=== PATIENT | female | born 1950 | race Two or more races ===

== ENCOUNTER 2024-04-21 19:45 | Emergency (ER) | payer MEDICAID ==
[2024-04-23] MEDS ORDERED: ALEN70TA74 PO (14:02)
[2024-04-23] MEDS ORDERED: SACU1TAB7 PO (14:02)
== END 2024-04-21 20:34 | disposition left against medical advice (07) ==
LOC: ER 19:45
DX: J10.1 Influenza due to other identified influenza virus with other respiratory manifestations (principal); Z53.21 Procedure and treatment not carried out due to patient leaving prior to being seen by health care provider

== ENCOUNTER 2024-04-23 08:46 | Inpatient (IN) | payer MEDICAID ==
[~2024-04-23] VITALS: Ht 157.5 cm; Wt 78.9 kg
[~2024-04-23 08:46] MED LIST: ALEN70TA74 PO; AZIT-43 PO; BENZ200C64 PO; CALCTAB49 PO; CHOL400T17 PO; INSU1INJ19 SC; SACU1TAB7 PO
[2024-04-23] MEDS: SODIUM CHLORIDE 0.9% 1,000 ML IV ONE (09:27)
[2024-04-23] MEDS: FAMOTIDINE (10MG/ML) 2ML VL IV ONE (09:44)
[2024-04-23 09:45] VITALS: PULSE 72; RESP 22; O2SAT 94
[2024-04-23] MEDS: ACETAMINOPHEN 325 MG TAB PO ONE (09:45)
[2024-04-23] MEDS: ONDANSETRON HCL 4 MG/2 ML VIAL IV ONE (09:45)
[2024-04-23 09:48] LABS: Basophils # (auto) 0 10 ^3/uL (0-0.2); Basophils % (auto) 0.2 % (0.0-2.0); Eosinophils # (auto) 0 10 ^3/uL (0-0.8); Hematocrit 34.7 % (36.0-46.0); Hemoglobin 11.3 g/dL (12.2-16.2); Lymphocytes # (auto) 1.2 10 ^3/uL (0.4-5.4); Lymphocytes % (auto) 10.5 % (10.0-50.0); Mean Corpuscular Hemoglobin 28.8 pg (28.0-32.0); Mean Corpuscular Hgb Conc. 32.5 g/dL (32.0-36.0); Mean Corpuscular Volume 88.7 fL (80.0-100.0); Monocytes # (auto) 0.6 10 ^3/uL (0-1.3); Monocytes % (auto) 5.7 % (0.0-12.0); Neutrophils # (auto) 9.4 10 ^3/uL (1.6-8.6); Neutrophils % (auto) 83.6 % (37.0-80.0); Platelet Count (auto) 232 10^3/uL (140-450); Red Blood Cells 3.91 10^6/uL (4.0-5.20); Red Cell Distribution Width 13.6 % (11.8-14.3); White Blood Cell 11.3 10^3/uL (4.4-10.8)
--- NOTE | 2024-04-23 09:58 | DVH ---
EXAM: XY CHEST PORTABLE Indication: sob Technique: Single frontal view of the chest was obtained Comparison: None FINDINGS: Lines and Tubes: None Lungs: No focal consolidation. Pleura: No effusion. No pneumothorax. Cardiomediastinal contours: Unremarkable Bones: No acute osseous abnormality. IMPRESSION: No acute cardiopulmonary disease.
[2024-04-23 10:32] LABS: Rapid Influenza B Negative (Negative)
[2024-04-23 10:34] LABS: Rapid Influenza A Positive (Negative)
[2024-04-23 10:35] LABS: COVID19 ANTIGEN SOFIA FIA NEGATIVE (NEGATIVE)
[2024-04-23 10:57] LABS: Urine Bacteria None Seen /hpf (None Seen)
[2024-04-23 11:01] LABS: Alanine Aminotransferase 24 U/L (7-40); Albumin 4.1 g/dL (3.2-4.8); Alkaline Phosphatase 58 U/L (46-116); Anion Gap 11 (5-15); BUN/Creatinine Ratio 23.2 (10.0-20.0); Bilirubin, Total 0.4 mg/dL (0.2-1.0); Calcium 9.6 mg/dL (8.7-10.4); Carbon Dioxide 22 mmol/L (20-31); Chloride 106 mmol/L (98-107); Sodium 139 mmol/L (136-145); Total Protein 7.4 g/dL (5.7-8.2)
[2024-04-23 11:02] LABS: Aspartate Aminotransferase 47 U/L (13-40); Blood Urea Nitrogen 35 mg/dL (9-23); Potassium 3.2 mmol/L (3.5-5.1)
--- NOTE | 2024-04-23 11:34 | ED.PDOC ---
History of Present Illness HPI Comments 73F with HTN, HLD, DM2, CHF, presents with 2 days of cough congestion runny nose sore throat and hypoxia. Patient also reports having bilateral achy chest pain. She was satting only 84% on room air. Chief Complaint: Flu like Time Seen by MD: 09:00 Primary Care Provider: KAJAL Allergies: Coded Allergies: NO KNOWN ALLERGIES (Unverified , 04/23/24) Home Meds Active Scripts Atorvastatin Calcium (ATORVASTATIN CALCIUM) 40 Mg Tab, 20 MG PO HS for 30 Days, #30 TAB 5 [facility]/24 Potassium Chloride (POTASSIUM CHLORIDE CR) 10 Meq Tb, 1 TAB PO DAILY for 14 Days, #14 TAB 5 [facility] 04/26/24 Furosemide (Lasix) 20 Mg Tb, 1 TAB PO DAILY for 30 Days, #30 TAB 1 [facility] 04/26/24 Oseltamivir Phosphate (Tamiflu) 75 Mg Cap, 30 MG PO BID for 2 Days, #4 CAP [facility] 04/26/24 Prednisone (Prednisone) 20 Mg Tab, 40 MG PO DAILY for 3 Days, #3 TAB [facility] 04/26/24 Levofloxacin Hemihydrate (LEVOFLOXACIN) 750 Mg Tab, 1 TAB PO DAILY for 3 Days, #3 TAB [facility] 04/26/24 Insulin Glargine (Basaglar Kwikpen) 100 Unit/Ml Inj, 22 UNIT SC DAILY for 68 Days, #15 INJ [facility] 04/26/24 Reported Medications Benzonatate (Benzonatate) 200 Mg Cap, 1 CAP PO TID PRN for 10 Days, #30 04/25/24 Calcium Carbonate (Calcium 600) 600 Mg Tab, 1 TAB PO BID for 90 Days, #180 04/25/24 Cholecalciferol (Delta D3) 400 Unit Tab, 1 TAB PO DAILY for 90 Days, #90 04/25/24 Clopidogrel Bisulfate (CLOPIDOGREL) 75 Mg Tab, 1 TAB PO DAILY 04/23/24 Levetiracetam (Levetiracetam) 500 Mg Tab, 1 TAB PO BID 04/23/24 Metformin Hydrochloride (Metformin Hcl) 850 Mg Tab, 1 TAB PO DAILY 04/23/24 Sacubitril-Valsartan (Entresto 49-51 mg) 1 Tab Tab, 1 TAB PO BID for 90 Days, #180 04/23/24 Carvedilol (Carvedilol) 3.125 Mg Tab, 1 TAB PO BID 04/23/24 Alendronate Sodium (Alendronate Sodium) 70 Mg Tab, 1 TAB PO QWEEKLY for 84 Days, #12 04/23/24 Empagliflozin (Jardiance) 10 Mg Tab, 1 TAB PO DAILY 04/23/24 Mode of Arrival: Wheelchair All Other Systems: Reviewed and Negative Physical Exam General Appearance: Moderate Distress HEENT: Pharynx Normal Neck: Normal Inspection Respiratory: Other (Wheezing bilaterally, hypoxic on room air tachypneic) Cardiovascular: Tachycardia Breast Exam: Deferred Gastrointestinal: Non Tender Genitalia: Deferred Pelvic: Deferred Rectal: Deferred Extremities: Normal range of motion Neurologic: No Motor Deficits Cerebellar Function: NOT DONE Reflexes: NOT DONE Skin: Dry Lymphatic: NOT DONE Was a procedure done? Was a procedure done?: No Differential Dx Considerations may include: Pneumonia, influenza, viral syndrome, heart failure X-Ray, Labs, Meds, VS Vital Signs Date Time Temp Pulse Resp B/P (MAP) Pulse Ox O2 Delivery O2 Flow Rate FiO2 04/23/24 13:00 70 28 121/32 (61) 95 04/23/24 12:47 71 35 118/38 (64) 95 04/23/24 12:46 72 04/23/24 09:51 97.9 72 22 137/72 (93) 94 97.9 04/23/24 09:45 72 22 94 Nasal Cannula* 2 28 04/23/24 09:16 19 94 Nasal Cannula* 05 1704/23/24 09:05 102.0 79 19 104/54 (71) 84 Lab Test 04/23/24 12:00 04/23/24 10:20 04/23/24 09:45 04/23/24 09:20 Range/Units White Blood Count 11.9 H 11.3 H 4.4-10.8 10^3/uL Red Blood Count 3.80 L 3.91 L 4.0-5.20 10^6/uL Hemoglobin 11.1 L 11.3 L 12.2-16.2 g/dL Hematocrit 33.8 L 34.7 L 36.0-46.0 % Mean Corpuscular Volume 88.9 88.7 80.0-100.0 fL Mean Corpuscular Hemoglobin 29.2 28.8 28.0-32.0 pg Mean Corpuscular Hemoglobin Concent 32.8 32.5 32.0-36.0 g/dL Red Cell Distribution Width 13.7 13.6 11.8-14.3 % Platelet Count 211 232 140-450 10^3/uL Mean Platelet Volume 7.3 7.3 6.9-10.8 fL Neutrophils (%) (Auto) 77.3 83.6 H 37.0-80.0 % Lymphocytes (%) (Auto) 15.3 10.5 10.0-50.0 % Monocytes (%) (Auto) 7.2 5.7 0.0-12.0 % Eosinophils (%) (Auto) 0.0 0.0 0.0-7.0 % Basophils (%) (Auto) 0.2 0.2 0.0-2.0 % Neutrophils # (Auto) 9.2 H 9.4 H 1.6-8.6 10 ^3/uL Lymphocytes # (Auto) 1.8 1.2 0.4-5.4 10 ^3/uL Monocytes # (Auto) 0.9 0.6 0-1.3 10 ^3/uL Eosinophils # (Auto) 0 0 0-0.8 10 ^3/uL Basophils # (Auto) 0 0 0-0.2 10 ^3/uL Nucleated Red Blood Cells 0.0 0.0 % Prothrombin Time 12.3 H 9.3-11.8 sec Prothrombin Time INR 1.18 H 0.9-1.15 Activated Partial Thromboplast Time 33.1 24.5-34.5 SEC Hemoglobin A1c 7.3 H <5.7 % A1C Troponin I High Sensitivity 3391 *H 2666 *H 2214 *H </=34 ng/L Urine Color Colorless Yellow Urine Clarity Turbid H Clear Urine pH 5.5 5.0-9.0 Urine Specific [place] 1.026 1.001-1.035 Urine Protein 1+ H Negative Urine Ketones Negative Negative Urine Blood 2+ H Negative /uL Urine Nitrite Negative Negative Urine Bilirubin Negative Negative Urine Urobilinogen Normal Negative mg/dL Urine Leukocyte Esterase Trace Negative /uL Urine RBC 5 0 - 4 /hpf Urine Microscopic WBC 22 H 0-5 /HPF Urine Squamous Epithelial Cells Few <5 /hpf Urine Bacteria None seen None Seen /hpf Urine Yeast (Budding) Occasional None Seen /hpf Urine Glucose 4+ H Normal mg/dL Sodium Level 139 136-145 mmol/L Potassium Level 3.2 L 3.5-5.1 mmol/L Chloride Level 106 98-107 mmol/L Carbon Dioxide Level 22 20-31 mmol/L Anion Gap 11 5-15 Blood Urea Nitrogen 35 H 9-23 mg/dL Creatinine 1.51 H 0.550-1.02 mg/dL Glomerular Filtration Rate Calc 36 >90 mL/min BUN/Creatinine Ratio 23.2 H 10.0-20.0 Serum Glucose 176 H 74-106 mg/dL Lactic Acid Level 1.0 0.4-2.0 mmol/L Calcium Level 9.6 8.7-10.4 mg/dL Total Bilirubin 0.4 0.2-1.0 mg/dL Aspartate Amino Transferase (AST) 47 H 13-40 U/L Alanine Aminotransferase (ALT) 24 7-40 U/L Alkaline Phosphatase 58 46-116 U/L B-Type Natriuretic Peptide 1858.46 0-100 pg/mL Total Protein 7.4 5.7-8.2 g/dL Albumin 4.1 3.2-4.8 g/dL Test 04/23/24 09:15 04/23/24 09:07 Range/Units Influenza Type A Antigen Positive Negative Influenza Type B Antigen Negative Negative SARS-CoV-2 Antigen (Rapid) Negative NEGATIVE POC Glucose 157 H 70-106 mg/dl Microbiology Date/Time Source Procedure Growth Status 04/23/24 09:45 Voided Urine Urine Culture - Final Complete 04/23/24 09:20 Blood Blood Culture - Final NO GROWTH AFTER 5 DAYS OF INCUBATION. Complete 04/23/24 09:01 Blood Blood Culture - Final NO GROWTH AFTER 5 DAYS OF INCUBATION. Complete Time of 1ST Reevaluation: 04:08 Reevaluation 1ST: Improved Patient Education/Counseling: Diagnosis, Treatment Family Education/Counseling: No Family Present Departure 1 Departure Time of Disposition: 04:08 (Patient with a acute hypoxic respiratory failure found to be flu positive. Patient with new oxygen requirement and we will admit patient for further workup) Impression: Primary Impression: Influenza A Additional Impressions: NSTEMI (non-ST elevated myocardial infarction) Acute hypoxic respiratory failure Disposition: ADMITTED INPATIENT Admit to: Med Surg Condition: Guarded e-Prescriptions Atorvastatin Calcium (ATORVASTATIN CALCIUM) 40 Mg Tab 20 MG PO HS for 30 Days, #30 TAB 5 [facility] Potassium Chloride (POTASSIUM CHLORIDE CR) 10 Meq Tb 1 TAB PO DAILY for 14 Days, #14 TAB 5 [facility] 04/[facility]/24 Furosemide (Lasix) 20 Mg Tb 1 TAB PO DAILY for 30 Days, #30 TAB 1 [facility]ill [facility] 04/26/24 Oseltamivir Phosphate (Tamiflu) 75 Mg Cap 30 MG PO BID for 2 Days, #4 CAP Prov: [facility] 04/26/24 Prednisone (Prednisone) 20 Mg Tab 40 MG PO DAILY for 3 Days, #3 TAB Prov: [facility] 04/26/24 Levofloxacin Hemihydrate (LEVOFLOXACIN) 750 Mg Tab 1 TAB PO DAILY for 3 Days, #3 TAB [facility]: [facility] 04/26/24 Insulin Glargine (Basaglar Kwikpen) 100 Unit/Ml Inj 22 UNIT SC DAILY for 68 Days, #15 INJ Prov: [facility] 04/26/24 Critical Care Note Critical Care Time?: Yes Critical care comment: Acute hypoxic respiratory failure Authorized and Performed by: [place] Carmona MD Total critical care time: Approximately 39 minutes Due to a high probability of clinically significant, life threatening deterioration, the patient required my highest level of preparedness to intervene emergently and I personally spent this critical care time directly and personally managing the patient. This critical care time included obtaining a history; examining the patient; pulse oximetry; ordering and review of studies; arranging urgent treatment with development of a management plan; evaluation of patient's response to treatment; frequent reassessment; and, discussions with other providers. This critical care time was performed to assess and manage the high probability of imminent, life-threatening deterioration that could result in multi-organ failure. It was exclusive of separately billable procedures and treating other patients and teaching time. Please see my other sections and the rest of the note for further information on patient assessment and treatment. Stability Stability form required: No Heart Score Heart Score: Heart Score Response (Comments) Value History Slightly Suspicious 0 EKG Repolarization Disturb 1 Age >65 2 Risk Factors >3 or Hx ASHD 2 Troponin >3 x's Normal limit 2 Total 7 [place] CARMONA MD Apr 23, 2024 11:34
[2024-04-23 11:35] LABS: Glucose 176 mg/dL (74-106)
[2024-04-23 11:37] LABS: Urine Blood 2+ /uL (Negative); Urine Budding Yeast OCCASIONAL /hpf (None Seen); Urine Clarity Turbid (Clear); Urine Color Colorless (Yellow); Urine Protein, UAD 1+ (Negative); Urine Specific Gravity 1.026 (1.001-1.035); Urine Squamous Epithelial Cell FEW /hpf (<5); Urine Urobilinogen Normal (Negative); Urine WBC 22 /HPF (0-5); Urine pH 5.5 (5.0-9.0)
[2024-04-23] MEDS: OSELTAMIVIR 75 MG CAP PO ONE (11:52)
[2024-04-23] MEDS: ASPirin 81 mg TAB PO ONE (11:52)
[2024-04-23 12:23] LABS: Basophils # (auto) 0 10 ^3/uL (0-0.2); Basophils % (auto) 0.2 % (0.0-2.0); Eosinophils # (auto) 0 10 ^3/uL (0-0.8); Hematocrit 33.8 % (36.0-46.0); Hemoglobin 11.1 g/dL (12.2-16.2); Lymphocytes # (auto) 1.8 10 ^3/uL (0.4-5.4); Lymphocytes % (auto) 15.3 % (10.0-50.0); Mean Corpuscular Hemoglobin 29.2 pg (28.0-32.0); Mean Corpuscular Hgb Conc. 32.8 g/dL (32.0-36.0); Mean Corpuscular Volume 88.9 fL (80.0-100.0); Monocytes # (auto) 0.9 10 ^3/uL (0-1.3); Monocytes % (auto) 7.2 % (0.0-12.0); Neutrophils # (auto) 9.2 10 ^3/uL (1.6-8.6); Neutrophils % (auto) 77.3 % (37.0-80.0); Platelet Count (auto) 211 10^3/uL (140-450); Red Cell Distribution Width 13.7 % (11.8-14.3); White Blood Cell 11.9 10^3/uL (4.4-10.8)
[2024-04-23 12:43] LABS: INR 1.18 (0.9-1.15); Partial Thromboplastin Time 33.1 SEC (24.5-34.5); Prothrombin Time 12.3 sec (9.3-11.8)
[2024-04-23] MEDS: HEPARIN SODIUM (PORCINE) 5000 UNITS/ML 1ML VIAL IV ONE (13:14)
[2024-04-23] MEDS: HEPARIN DRIP/D5W 100UNITS/ML 250 ML IV SCH (13:15)
[2024-04-23] MEDS ORDERED: DOCUSATE SOD 100 MG CAP PO PRN (14:00)
[2024-04-23] MEDS ORDERED: HYDROcodone-ACET 5/325MG TAB PO PRN (14:00)
[2024-04-23] MEDS ORDERED: DEXTROSE (50%) 50ML SYRG IV PRN (14:00)
[2024-04-23] MEDS ORDERED: ONDANSETRON HCL 4 MG/2 ML VIAL IV PRN (14:00)
[2024-04-23] MEDS: SODIUM CHLOR 0.9% PF (SALINE LOCK) 10ML VIAL/SYR IV SCH (14:00)
[2024-04-23] MEDS ORDERED: NITROGLYCERIN 0.4 MG SL TAB SL PRN (14:00)
[2024-04-23] MEDS ORDERED: ACETAMINOPHEN 325 MG TAB PO PRN (14:00)
[2024-04-23] MEDS ORDERED: MORPHINE SULFATE INJ 2 MG/ml SYRG IV PRN (14:00)
[2024-04-23] MEDS ORDERED: CLOP75TA70 PO (14:02)
[2024-04-23] MEDS ORDERED: LEVE500T3 PO (14:02)
[2024-04-23] MEDS ORDERED: ROSU5TAB24 PO (14:02)
[2024-04-23] MEDS ORDERED: EMPA1TAB PO (14:02)
[2024-04-23] MEDS ORDERED: VALS1TAB58 PO (14:02)
[2024-04-23] MEDS ORDERED: CARV3.1240 PO (14:02)
[2024-04-23] MEDS ORDERED: METF-371 PO (14:02)
--- NOTE | 2024-04-23 14:12 | DVHHP2 ---
History of Present Illness Reason for Visit: Flu like symptoms History of Present Illness Jayla Byrd is a 73-year-old female with past medical history of diabetes, seizures, CHF, CVA, hypertension, and hyperlipidemia who comes in with complaints of flu like symptoms. Patient states that she came in with complaints of a sore throat, fatigue, and shortness of breath. Denies any chest pain or palpitations. While in the ER patient was found to be influenza A +, febrile, leukocytosis, and have elevated troponin. Cardiovascular: CHF, HTN, hyperipidemia PERIPHERAL EQUIPMENT OPERATOR: Other (Seizure, & CVA) Endocrine: Diabetes Past Surgical History: None Family History: None Smoke: No ALCOHOL: none Drugs: None Lives: with Family Domestic Violence: Neg Review of Systems Constitutional: Yes: Fever, Chills, Sweats, Weakness, Malaise; No: Other Eyes: No: Pain, Vision change, Conjunctivae inflammation, Eyelid inflammation, Other, Redness ENT: Nose congestion, Throat pain; No: Ear pain, Ear discharge, Nose pain, Nose discharge, Mouth pain, Mouth swelling, Throat swelling, Other Respiratory: Cough; No: Dry, Shortness of breath, SOB with excertion, Wheezing, Hemoptysis, Pleuritic Pain, Sputum, Wheezing, Other Cardiovascular: No: Chest Pain, Palpitations, Orthopnea, Paroxysmal Noc. Dyspnea, Edema, Lt Headedness, Other Gastrointestinal: No: Nausea, Vomiting, Abdominal Pain, Diarrhea, Constipation, Melena, Hematochezia, Other Genitourinary: No Dysuria, No Frequency, No Incontinence, No Hematuria, No Retention, No Other Musculoskeletal: No: other, neck pain, shoulder pain, arm pain, back pain, hand pain, leg pain, foot pain Skin: No: Rash, Lesions, Jaundice, Bruising, Other Neurological: No: Weakness, Numbness, Incoordination, Change in speech, Confusion, Seizures, Other Allergies: Coded Allergies: NO KNOWN ALLERGIES (Unverified , 04/23/24) Medications Current Medications Medications Dose Ordered Sig/Smiley Route Start Time Stop Time Status Last Admin Dose Admin Heparin Sodium/ Dextrose 250 ml @ 9 mls/hr Q24H IV 04/23/24 11:45 04/23/24 13:15 9 MLS/HR Sodium Chloride 10 ml Q8HR IV 04/23/24 14:00 UNV Acetaminophen/ Hydrocodone Bitart 1 tab Q4HP PRN PO 04/23/24 14:00 UNV Ondansetron HCl 4 mg Q4HP PRN IV 04/23/24 14:00 UNV Docusate Sodium 100 mg BIDPRN PRN PO 04/23/24 14:00 UNV Acetaminophen 650 mg Q6HP PRN PO 04/23/24 14:00 UNV Nitroglycerin 0.4 mg Q5MINP PRN SL 04/23/24 14:00 UNV Morphine Sulfate 2 mg Q30M PRN IV 04/23/24 14:00 UNV Exam Vital Signs Vital Signs Date Time Temp Pulse Resp B/P (MAP) Pulse Ox O2 Delivery O2 Flow Rate FiO2 04/23/24 09:51 97.9 72 22 137/72 (93) 94 97.9 04/23/24 09:45 Nasal Cannula* 2 28 General Appearance: Alert, Oriented X3, Cooperative, moderate distress HEENT: Atraumatic, PERRLA Respiratory: Other (diminshed breath sounds) Cardiovascular: Regular rate, Normal S1, Normal S2 Abdominal: Normal bowel sounds, Soft, No tenderness Extremities: No clubbing, No cyanosis, No edema, Normal pulses Skin: No rashes, No breakdown, No significant lesion Neuro: Normal gait, Normal speech, Strength at 5/5 X4 ext Psych/Mental Status: Mental status NL, Mood NL Labs/Xrays Labs Test 04/23/24 12:00 04/23/24 09:45 04/23/24 09:20 04/23/24 09:15 Range/Units White Blood Count 11.9 H 4.4-10.8 10^3/uL Red Blood Count 3.80 L 4.0-5.20 10^6/uL Hemoglobin 11.1 L 12.2-16.2 g/dL Hematocrit 33.8 L 36.0-46.0 % Mean Corpuscular Volume 88.9 80.0-100.0 fL Mean Corpuscular Hemoglobin 29.2 28.0-32.0 pg Mean Corpuscular Hemoglobin Concent 32.8 32.0-36.0 g/dL Red Cell Distribution Width 13.7 11.8-14.3 % Platelet Count 211 140-450 10^3/uL Mean Platelet Volume 7.3 6.9-10.8 fL Neutrophils (%) (Auto) 77.3 37.0-80.0 % Lymphocytes (%) (Auto) 15.3 10.0-50.0 % Monocytes (%) (Auto) 7.2 0.0-12.0 % Eosinophils (%) (Auto) 0.0 0.0-7.0 % Basophils (%) (Auto) 0.2 0.0-2.0 % Neutrophils # (Auto) 9.2 H 1.6-8.6 10 ^3/uL Lymphocytes # (Auto) 1.8 0.4-5.4 10 ^3/uL Monocytes # (Auto) 0.9 0-1.3 10 ^3/uL Eosinophils # (Auto) 0 0-0.8 10 ^3/uL Basophils # (Auto) 0 0-0.2 10 ^3/uL Nucleated Red Blood Cells 0.0 % Prothrombin Time 12.3 H 9.3-11.8 sec Prothrombin Time INR 1.18 H 0.9-1.15 Activated Partial Thromboplast Time 33.1 24.5-34.5 SEC Troponin I High Sensitivity 3391 *H </=34 ng/L Urine Color Colorless Yellow Urine Clarity Turbid H Clear Urine pH 5.5 5.0-9.0 Urine Specific [place] 1.026 1.001-1.035 Urine Protein 1+ H Negative Urine Ketones Negative Negative Urine Blood 2+ H Negative /uL Urine Nitrite Negative Negative Urine Bilirubin Negative Negative Urine Urobilinogen Normal Negative mg/dL Urine Leukocyte Esterase Trace Negative /uL Urine RBC 5 0 - 4 /hpf Urine Microscopic WBC 22 H 0-5 /HPF Urine Squamous Epithelial Cells Few <5 /hpf Urine Bacteria None seen None Seen /hpf Urine Yeast (Budding) Occasional None Seen /hpf Urine Glucose 4+ H Normal mg/dL Sodium Level 139 136-145 mmol/L Potassium Level 3.2 L 3.5-5.1 mmol/L Chloride Level 106 98-107 mmol/L Carbon Dioxide Level 22 20-31 mmol/L Anion Gap 11 5-15 Blood Urea Nitrogen 35 H 9-23 mg/dL Creatinine 1.51 H 0.550-1.02 mg/dL Glomerular Filtration Rate Calc 36 >90 mL/min BUN/Creatinine Ratio 23.2 H 10.0-20.0 Serum Glucose 176 H 74-106 mg/dL Lactic Acid Level 1.0 0.4-2.0 mmol/L Calcium Level 9.6 8.7-10.4 mg/dL Total Bilirubin 0.4 0.2-1.0 mg/dL Aspartate Amino Transferase (AST) 47 H 13-40 U/L Alanine Aminotransferase (ALT) 24 7-40 U/L Alkaline Phosphatase 58 46-116 U/L B-Type Natriuretic Peptide 1858.46 0-100 pg/mL Total Protein 7.4 5.7-8.2 g/dL Albumin 4.1 3.2-4.8 g/dL Influenza Type A Antigen Positive Negative Influenza Type B Antigen Negative Negative SARS-CoV-2 Antigen (Rapid) Negative NEGATIVE Test 04/23/24 09:07 Range/Units POC Glucose 157 H 70-106 mg/dl EXAM: XY CHEST PORTABLE FINDINGS: Lines and Tubes: None Lungs: No focal consolidation. Pleura: No effusion. No pneumothorax. Cardiomediastinal contours: Unremarkable Bones: No acute osseous abnormality. IMPRESSION: No acute cardiopulmonary disease. Assessment/Plan Assessment/Plan Assessment: Elevated troponin, Sepsis, Influenza A +, Acute kidney injury, Hypokalemia, Elevated BNP, Hypertension, CHF, Hyperlipidemia, Seizures, Plan: Admit to Tele, Cardiology consult, Heparin drip, Blood and urine cultures, IV antibiotics, Tamiflu, Manage/Monitor electrolytes closely, Home medications reconciled, Plan discussed with: Patient My Orders Orders - BRET SHEIKH Procedure Category Date Status Time * Cardiology Consult CONS 04/23/24 Transmitted 13:46 Admit ADMIT 04/23/24 Transmitted 13:47 Code Status CODE 04/23/24 Transmitted 13:47 Sodium Chloride Lock PHA 04/23/24 Logged (Saline Lock Ns) 14:00 Hydrocodone-Acet PHA 04/23/24 Logged 5/325mg Tab ([place] 14:00 Ondansetron Hcl PHA 04/23/24 Logged (Zofran) 14:00 Docusate Sodium PHA 04/23/24 Logged Capsule (Colace 14:00 Comprehensive LAB 04/24/24 Verified Metabolic Panel 04:00 Cardiac DIET 04/23/24 Transmitted Diet-2gna,Lofat,Lochol Dinner Condition: Critical [facility] 04/23/24 In Process 13:47 Acetaminophen Tablet PHA 04/23/24 Logged (Tylenol Tablet) 14:00 Nitroglycerin PHA 04/23/24 Logged Sublingual (Ntrostat 14:00 Morphine Sulfate [facility] 04/23/24 Logged Injection 14:00 Notify Of Changes [facility] 04/23/24 In Process From Base 13:47 Customer Support Advisor For [facility] 04/23/24 In Process 24 Hours 13:47 Emergency Dysrhythmia [facility] 04/23/24 In Process Protocol 13:47 Rhythm Strips Once [facility] 04/23/24 In Process Every Shift 13:47 Oxygen By Nasal 04/23/24 Transmitted Cannula 13:47 Date of Service: Apr 23, 2024 Billing Provider: BRET SHEIKH Common Visit Codes: [id number] INP/OBS CARE (MOD) BRET SHEIKH Apr 23, 2024 14:12
[2024-04-23 15:00] VITALS: BP 137/72; PULSE 62; RESP 18; TEMP 97.9; O2SAT 98
[2024-04-23] MEDS: AZITHROMYCIN 500MG/ 250ML 250 ML IV ONE (15:02)
[2024-04-23] MEDS: ACCU-CHEK COMFORT CURVE STRIP VI SCH (16:59)
[2024-04-23] MEDS: InsuLIN REG 1unit/0.01ml Soln (100units/ml) SC SCH ×2 (16:59→21:30)
--- NOTE | 2024-04-23 18:30 | DVHINCON2 ---
Date Seen: Apr 23, 2024 Referring Physician MONICA Villarreal Reason for Consultation NSTEMI History of Present Illness This is a Slovak-speaking mostly 73-year-old female who presented to the emergency room with a chief complaint of flu-like symptoms for two days. The patient complains of flu-like symptoms including a sore throat, nausea, vomiting, diarrhea, pyrexia, and a productive cough with green sputum. She was found with an oxygen saturation level of 84% on room air for which she was administered supplemental oxygenation via NC. The patient does complaint of substernal chest pain which is sharp in nature and worse with coughing. The patient reports family sick contacts at home. She underwent a 12 lead electrocardiogram revealing a sinus rhythm with an associated left bundle branch block. Follows up in the outpatient setting with Dr. Loza in [place] with an scheduled transthoracic echocardiogram for next month. She was referred to Cardiology by PCP given a LBBB on 12-lead ECG. Since then she has undergone a transthoracic echocardiogram with unspecified abnormal findings. Home medications include GDMT for CHF. Denies undergoing ischemic workup neither an event monitor. Significant medical history includes congestive heart failure, hypertension, dyslipidemia, insulin-dependent diabetes mellitus, osteoporosis, and hard of hearing. Past Medical History Past medical history reviewed. No other significant than mentioned above. Past Surgical History Past surgical history reviewed. No other significant than mentioned above. Family History Family history reviewed. Social History Denies the use of illicit drugs, alcohol, or tobacco use. Allergies: Coded Allergies: NO KNOWN ALLERGIES (Unverified , 04/23/24) Home Meds Reported Medications Clopidogrel Bisulfate (CLOPIDOGREL) 75 Mg Tab, 1 TAB PO DAILY 04/23/24 Valsartan (Valsartan) 160 Mg Tab, 1 TAB PO DAILY 04/23/24 Levetiracetam (Levetiracetam) 500 Mg Tab, 1 TAB PO BID 04/23/24 Metformin Hydrochloride (Metformin Hcl) 850 Mg Tab, 1 TAB PO DAILY 04/23/24 Sacubitril-Valsartan (Entresto 49-51 mg) 1 Tab Tab, 1 TAB PO DAILY 04/23/24 Carvedilol (Carvedilol) 3.125 Mg Tab, 1 TAB PO BID 04/23/24 Alendronate Sodium (Alendronate Sodium) 70 Mg Tab, 1 TAB PO 04/23/24 Rosuvastatin Calcium (Rosuvastatin Calcium) 5 Mg Tab, 1 TAB PO DAILY 04/23/24 Empagliflozin (Jardiance) 10 Mg Tab, 1 TAB PO DAILY 04/23/24 Home Meds Home medications reviewed. Current Medications Current Medications Medications (Trade) Dose Ordered Sig/Smiley Route PRN Reason Start Time Stop Time Status Last Admin Heparin Sodium/ Dextrose 250 ml @ 9 mls/hr Q24H IV 04/23/24 11:45 04/23/24 13:15 Sodium Chloride (Saline Lock Ns) 10 ml Q8HR IV 04/23/24 14:00 04/23/24 14:00 Acetaminophen/ Hydrocodone Bitart ([place] 5/325MG Tab) 1 tab Q4HP PRN PO MODERATE PAIN (4-6 PAIN SCALE) 04/23/24 14:00 Ondansetron HCl (Zofran) 4 mg Q4HP PRN IV NAUSEA / VOMITING 04/23/24 14:00 Docusate Sodium (Colace Capsule) 100 mg BIDPRN PRN PO FOR CONSTIPATION 04/23/24 14:00 Acetaminophen (Tylenol Tablet) 650 mg Q6HP PRN PO PAIN SCALE 1-3 OR TEMP>100.4 04/23/24 14:00 Nitroglycerin (Ntrostat Sublingual) 0.4 mg Q5MINP PRN SL FOR CHEST PAIN 04/23/24 14:00 Morphine Sulfate 2 mg Q30M PRN IV FOR CHEST PAIN 04/23/24 14:00 Azithromycin 250 ml @ 125 mls/hr DAILY IV 04/24/24 10:00 Oseltamivir Phosphate (Tamiflu 75MG Capsule) 75 mg Q12HR PO 04/23/24 22:00 04/23/24 14:19 DC Albuterol (Ventolin Medneb) 2.5 mg Q4HPRN PRN NEB SHORTNESS OF BREATH 04/23/24 14:00 Ipratropium [place] (Atrovent Medneb) 0.5 mg Q4HPRN PRN NEB SHORTNESS OF BREATH 04/23/24 14:00 Methylprednisolone Sodium Succinate (Solu Medrol) 40 mg BID IV 04/23/24 22:00 Diagnostic Test (Pha) (Accu-Chek Comfort Curve T) 1 strip ACHS 04/23/24 17:00 04/23/24 16:59 Insulin Human Regular (InsuLIN R) HS SC 04/23/24 22:00 Insulin Human Regular (InsuLIN R) AC SC 04/23/24 17:00 Dextrose 50 ml UD PRN IV Blood Sugar LESS THAN 60 04/23/24 14:00 Carvedilol (Coreg Tablet) 3.125 mg BID PO 04/23/24 22:00 Clopidogrel Bisulfate (Plavix) 75 mg DAILY PO 04/24/24 10:00 Empaglifozin (Jardiance) 10 mg DAILY PO 04/24/24 10:00 Levetiracetam (Keppra Tablet) 500 mg BID PO 04/23/24 22:00 Atorvastatin Calcium (Lipitor) 10 mg HS PO 04/23/24 22:00 Patient Own Medication 1 tab BID PO 04/24/24 10:00 Valsartan (Diovan) 160 mg DAILY PO 04/24/24 10:00 Oseltamivir Phosphate (Tamiflu 30MG Capsule) 30 mg BID PO 04/23/24 22:00 04/27/24 22:01 Review of Systems Constitutional: Flu-like symptoms Ears, Nose, & Throat: No symptom reported Eyes: No symptom reported Neurological: No symptoms reported Pulmonary/Respiratory: No symptom reported Cardiovascular: No symptom reported Gastrointestinal: No symptom reported Genitourinary: No symptom reported Musculoskeletal: No symptom reported Skin: No symptom reported Psychiatric: No symptom reported Endocrine: No symptom reported Hemotologic/Lymphatic: No symptom reported Vital Signs Vital Signs Date Time Temp Pulse Resp B/P (MAP) Pulse Ox O2 Delivery O2 Flow Rate FiO2 04/23/24 16:00 68 37 121/56 (77) 98 04/23/24 15:00 97.9 2.0 28 97.9 04/23/24 09:45 Nasal Cannula* Physical Exam General Appearance: Cooperative. Well developed. Well nourished. Mild acute respiratory distress Head Exam: Normal inspection Neck Exam: Normal inspection. Non-tender. Normal alignment Pulmonary/Respiratory: Chest non-tender. Diminished bilateral breath sounds. Cough and congestion present Cardiovascular/Chest: Regular rate and rhythm. S1, S2. Sinus rhythm with a associated LBBB. No murmurs. No JVD. Peripheral Pulses: 2+ Radial (R). 2+ Radial (L). 2+ Pedal (R). 2+ Pedal (L) Abdominal Exam: Normal bowel sounds. Soft. Nontender. No hepatospenomegaly. No masses Ankle Exam: Negative ankle edema Lower extremities: Negative lower extremity edema Neuro/Mental Status: A&O x4. Coherent Thoughts/Psych: Normal thought pattern. Appropriate mood and affect. Good judgement and insight Appearance: Mild acute respiratory distress Skin Exam: Normal inspection. Normal color. Warm. Dry Labs/Diagnostic Data Labs Test 04/23/24 16:57 04/23/24 12:00 04/23/24 09:45 04/23/24 09:20 Range/Units POC Glucose 116 H 70-106 mg/dl White Blood Count 11.9 H 4.4-10.8 10^3/uL Red Blood Count 3.80 L 4.0-5.20 10^6/uL Hemoglobin 11.1 L 12.2-16.2 g/dL Hematocrit 33.8 L 36.0-46.0 % Mean Corpuscular Volume 88.9 80.0-100.0 fL Mean Corpuscular Hemoglobin 29.2 28.0-32.0 pg Mean Corpuscular Hemoglobin Concent 32.8 32.0-36.0 g/dL Red Cell Distribution Width 13.7 11.8-14.3 % Platelet Count 211 140-450 10^3/uL Mean Platelet Volume 7.3 6.9-10.8 fL Neutrophils (%) (Auto) 77.3 37.0-80.0 % Lymphocytes (%) (Auto) 15.3 10.0-50.0 % Monocytes (%) (Auto) 7.2 0.0-12.0 % Eosinophils (%) (Auto) 0.0 0.0-7.0 % Basophils (%) (Auto) 0.2 0.0-2.0 % Neutrophils # (Auto) 9.2 H 1.6-8.6 10 ^3/uL Lymphocytes # (Auto) 1.8 0.4-5.4 10 ^3/uL Monocytes # (Auto) 0.9 0-1.3 10 ^3/uL Eosinophils # (Auto) 0 0-0.8 10 ^3/uL Basophils # (Auto) 0 0-0.2 10 ^3/uL Nucleated Red Blood Cells 0.0 % Prothrombin Time 12.3 H 9.3-11.8 sec Prothrombin Time INR 1.18 H 0.9-1.15 Activated Partial Thromboplast Time 33.1 24.5-34.5 SEC Troponin I High Sensitivity 3391 *H </=34 ng/L Urine Color Colorless Yellow Urine Clarity Turbid H Clear Urine pH 5.5 5.0-9.0 Urine Specific [place] 1.026 1.001-1.035 Urine Protein 1+ H Negative Urine Ketones Negative Negative Urine Blood 2+ H Negative /uL Urine Nitrite Negative Negative Urine Bilirubin Negative Negative Urine Urobilinogen Normal Negative mg/dL Urine Leukocyte Esterase Trace Negative /uL Urine RBC 5 0 - 4 /hpf Urine Microscopic WBC 22 H 0-5 /HPF Urine Squamous Epithelial Cells Few <5 /hpf Urine Bacteria None seen None Seen /hpf Urine Yeast (Budding) Occasional None Seen /hpf Urine Glucose 4+ H Normal mg/dL Sodium Level 139 136-145 mmol/L Potassium Level 3.2 L 3.5-5.1 mmol/L Chloride Level 106 98-107 mmol/L Carbon Dioxide Level 22 20-31 mmol/L Anion Gap 11 5-15 Blood Urea Nitrogen 35 H 9-23 mg/dL Creatinine 1.51 H 0.550-1.02 mg/dL Glomerular Filtration Rate Calc 36 >90 mL/min BUN/Creatinine Ratio 23.2 H 10.0-20.0 Serum Glucose 176 H 74-106 mg/dL Lactic Acid Level 1.0 0.4-2.0 mmol/L Calcium Level 9.6 8.7-10.4 mg/dL Total Bilirubin 0.4 0.2-1.0 mg/dL Aspartate Amino Transferase (AST) 47 H 13-40 U/L Alanine Aminotransferase (ALT) 24 7-40 U/L Alkaline Phosphatase 58 46-116 U/L B-Type Natriuretic Peptide 1858.46 0-100 pg/mL Total Protein 7.4 5.7-8.2 g/dL Albumin 4.1 3.2-4.8 g/dL Test 04/23/24 09:15 Range/Units Influenza Type A Antigen Positive Negative Influenza Type B Antigen Negative Negative SARS-CoV-2 Antigen (Rapid) Negative NEGATIVE Assessment Acute hypoxic respiratory failure with influenza A Likely NSTEMI Type II secondary to above Chronic compensated unspecified heart failure Left bundle branch block, not newly diagnosed Hypertension Dyslipidemia HX of CVA Likely DEACON on CKD Plan/Recommendation (Dr. Lyon) Likely NSTEMI Type II secondary to acute respiratory failure including Influenza Type A. We will continue further cardiac evaluation with a transthoracic echocardiogram to evaluate cardiac function. In the meantime, transition to therapeutic Lovenox. Reestablish home medications including GDMT for CHF and single-antiplatelet therapy. Repeat serial troponin levels. Monitor ECG changes closely. Thank you for allowing us to participate in this patient's care. Please call if you have any questions or concerns. This medical document was created using an electronic medical record system with voice recognition software and computerized dictation system. Although this document has been carefully reviewed, there might still be some phonetic and typographical errors. Occasional wrong-word or ``sound-alike substitutions may have occurred due to the inherent limitations of voice recognition software. These areas are purely typographical due to imperfections of the software programs and do not reflect any compromise in the patient's medical care. Pl ease read the chart carefully and recognize, using context, where these substitutions have occurred. Plan discussed with: Patient, Daughter, Other NYHA Physical activity limitations: NA Date of Service: Apr 23, 2024 Billing Provider: MARIN AKINS Cardiology Common Codes: [id number] INP/OBS CARE (High) MARIN AKINS Apr 23, 2024 18:30
[2024-04-23 19:23] LABS: INR 1.16 (0.9-1.15); Prothrombin Time 12.1 sec (9.3-11.8)
--- NOTE | 2024-04-23 19:42 | ECG ---
[facility] Test Date: 2024-04-23 Test Time: 15:20:44 Pat Name: GELACIO BORGES JOSE J Department: ER Room: 0237T Gender: F Transportation Job Titles: CATHERINE : 1950 Requested By: MONTANA CARMONA Order Number: [id number] Reading MD: Abhilash Lyon Measurements Intervals [place] Rate: 68 P: 37 WA: 208 QRS: 2 QRSD: 188 T: 111 QT: 512 QTc: 545 Interpretive Statements Sinus rhythm Left bundle branch block Baseline wander in lead(s) III,V3,V4,V5,V6 Electronically Signed On 04-24-2024 13:27:54 PST by Abhilash Lyon Please click the below link to view image of tracing.
[2024-04-23] MEDS: ENOXAPARIN SOD 100 MG/1 ML SYRINGE SC ONE (19:46)
[2024-04-23 19:49] VITALS: PULSE 79; RESP 26; O2SAT 98
[2024-04-23 19:58] LABS: LDL Cholesterol 25 mg/dL (< 100); Triglycerides 74 mg/dL (< 150)
[2024-04-23 19:59] LABS: HDL Cholesterol 48 mg/dL (40-59)
[2024-04-23 20:00] LABS: Cholesterol 92 mg/dL (< 200)
[2024-04-23 21:33] VITALS: PULSE 70; RESP 70; O2SAT 94
[2024-04-23] MEDS: ALBUTEROL SULF 2.5 MG/0.5ML(0.5%) NEB SOLN NEB PRN (21:33)
[2024-04-23] MEDS: IPRATROPIUM BROM 0.5 MG/2.5ML INH SOL NEB PRN (21:33)
[2024-04-23 21:43] VITALS: PULSE 77; RESP 20; O2SAT 95
[2024-04-23] MEDS ORDERED: OSELTAMIVIR 75 MG CAP PO SCH (22:00)
[2024-04-23] MEDS: CARVEDILOL 3.125 MG TAB PO SCH (22:00)
[2024-04-23] MEDS: OSELTAMIVIR 30 MG CAP PO SCH (22:10)
[2024-04-23] MEDS: methylPREDNISolone SOD SUCC 40 MG/ML VL IV SCH (22:10)
[2024-04-23] MEDS: ATORVASTATIN 20 MG TAB PO SCH (22:10)
[2024-04-23] MEDS: levETIRAcetam 500 MG TAB PO SCH (22:10)
[2024-04-24] VITALS (19 sets, daily range): BP systolic 118–138; BP diastolic 53–62; PULSE 59–77; RESP 16–22; TEMP 97.5–98.6; O2SAT 91–100
[2024-04-24 05:37] LABS: Basophils # (auto) 0 10 ^3/uL (0-0.2); Basophils % (auto) 0.2 % (0.0-2.0); Eosinophils # (auto) 0 10 ^3/uL (0-0.8); Hematocrit 35.1 % (36.0-46.0); Hemoglobin 11.6 g/dL (12.2-16.2); Lymphocytes # (auto) 1.1 10 ^3/uL (0.4-5.4); Lymphocytes % (auto) 12.7 % (10.0-50.0); Mean Corpuscular Hemoglobin 29.3 pg (28.0-32.0); Mean Corpuscular Volume 88.7 fL (80.0-100.0); Monocytes # (auto) 0.2 10 ^3/uL (0-1.3); Monocytes % (auto) 2.9 % (0.0-12.0); Neutrophils # (auto) 7.3 10 ^3/uL (1.6-8.6); Neutrophils % (auto) 84.2 % (37.0-80.0); Nucleated Red Blood Cells % 0.1 %; Platelet Count (auto) 198 10^3/uL (140-450); Red Blood Cells 3.96 10^6/uL (4.0-5.20); Red Cell Distribution Width 13.8 % (11.8-14.3); White Blood Cell 8.6 10^3/uL (4.4-10.8)
[2024-04-24 05:53] LABS: Alanine Aminotransferase 26 U/L (7-40); Albumin 3.6 g/dL (3.2-4.8); Alkaline Phosphatase 53 U/L (46-116); Anion Gap 12 (5-15); BUN/Creatinine Ratio 28.4 (10.0-20.0); Bilirubin, Total 0.3 mg/dL (0.2-1.0); Calcium 8.8 mg/dL (8.7-10.4); Carbon Dioxide 22 mmol/L (20-31); Magnesium 2.1 mg/dL (1.6-2.6); Potassium 3.7 mmol/L (3.5-5.1); Total Protein 6.6 g/dL (5.7-8.2)
[2024-04-24 05:56] LABS: Aspartate Aminotransferase 71 U/L (13-40); Blood Urea Nitrogen 38 mg/dL (9-23); Chloride 111 mmol/L (98-107); Glucose 177 mg/dL (74-106); Sodium 145 mmol/L (136-145)
[2024-04-24 07:51] LABS: Free T3 1.87 pg/mL (2.3-4.2); Free T4 (Free Thyroxine) 1.26 ng/dL (0.89-1.76)
[2024-04-24] MEDS: AZITHROMYCIN 500MG/ 250ML 250 ML IV SCH (08:51)
[2024-04-24] MEDS: Sacubitril-Valsartan (Entresto 49-51 mg) TABLET PO SCH (10:00)
[2024-04-24] MEDS ORDERED: VALSARTAN 80 MG TAB PO SCH (10:00)
[2024-04-24] MEDS: ENOXAPARIN SOD 100 MG/1 ML SYRINGE SC SCH (10:07)
[2024-04-24] MEDS: EMPAGLIFLOZIN 10 MG TAB PO SCH (10:08)
[2024-04-24] MEDS: CLOPIDOGREL BISULFATE 75 MG TAB PO SCH (10:08)
[2024-04-24] MEDS: FUROSEMIDE 20 MG/2 ML VIAL IV ONE (10:09)
--- NOTE | 2024-04-24 11:44 | DVHPNRES ---
Progress Note Date Seen: Apr 24, 2024 Resident Creating Document: RAMOS BAUTISTA RESIDENT Medical Necessity Reason Pt with a Central, PICC or Fol: No Subjective Review of Systems This is a 73 years old old female with past medical history of hypertension, dyslipidemia, CHF, type 2 diabetes mellitus, osteoporosis presented to the ED with a chief complaint of flu-like symptoms for 2 days prior to this admission. The patient complains of flu-like symptoms including a sore throat, nausea, vomiting, diarrhea, pyrexia, and a productive cough with green sputum. She was found with an oxygen saturation level of 84% on room air for which she was administered supplemental oxygenation via NC. The patient does complaint of substernal chest pain which is sharp in nature and worse with coughing. The patient reports family sick contacts at home. She underwent a 12 lead electrocardiogram revealing a sinus rhythm with an associated left bundle branch block. Patient was seen and examined on the bedside. she is alert oriented x3 and on 4 L oxygen through nasal canula. Complaint of cough with productive sputum and wheezing. No other active complaint. Constitutional: No: Fever, Chills, Sweats, Weakness, Malaise, Other Eyes: No: Pain, Vision change, Conjunctivae inflammation, Eyelid inflammation, Other, Redness ENT: No: Ear pain, Ear discharge, Nose pain, Nose discharge, Nose congestion, Mouth pain, Mouth swelling, Throat pain, Throat swelling, Other Respiratory: Shortness of breath, improving Cough, Dry,Wheezing, sputum, No Hemoptysis, Pleuritic Pain, Other Cardiovascular: No: Chest Pain, Palpitations, Orthopnea, Paroxysmal Noc. Dyspnea, Edema, Lt Headedness, Other Gastrointestinal: No: Nausea, Vomiting, Abdominal Pain, Diarrhea, Constipation, Melena, Hematochezia, Other Musculoskeletal: No: other, neck pain, shoulder pain, arm pain, back pain, hand pain, leg pain, foot pain Neurological:; No: Weakness, Numbness, Incoordination, Change in speech, Confusion, Seizures Objective vital signs Vital Sign Date Time Temp Pulse Resp B/P (MAP) Pulse Ox O2 Delivery O2 Flow Rate FiO2 04/24/24 10:10 99 Nasal Cannula 4.0 04/24/24 10:09 135/62 04/24/24 10:08 63 04/24/24 10:05 36 04/24/24 08:57 97.7 22 97.7 Total Intake and Output 04/23/24 04/23/24 04/24/24 15:00 23:00 07:00 Intake Total 1039 ml 295 ml 100 ml Balance 1039 ml 295 ml 100 ml medications Current Medications Medications Dose Ordered Sig/Smiley Route Start Time Stop Time Status Last Admin Dose Admin Sodium Chloride 10 ml Q8HR IV 04/23/24 14:00 04/24/24 06:01 10 ML Ondansetron HCl 4 mg Q4HP PRN IV 04/23/24 14:00 Docusate Sodium 100 mg BIDPRN PRN PO 04/23/24 14:00 Acetaminophen 650 mg Q6HP PRN PO 04/23/24 14:00 Nitroglycerin 0.4 mg Q5MINP PRN SL 04/23/24 14:00 Morphine Sulfate 2 mg Q30M PRN IV 04/23/24 14:00 Azithromycin 250 ml @ 125 mls/hr DAILY IV 04/24/24 10:00 04/24/24 08:51 125 MLS/HR Methylprednisolone Sodium Succinate 40 mg BID IV 04/23/24 22:00 04/24/24 08:51 40 MG Diagnostic Test (Pha) 1 strip ACHS 04/23/24 17:00 04/24/24 11:14 1 STRIP Insulin Human Regular HS SC 04/23/24 22:00 Insulin Human Regular AC SC 04/23/24 17:00 04/24/24 11:15 9 UNITS Dextrose 50 ml UD PRN IV 04/23/24 14:00 Carvedilol 3.125 mg BID PO 04/23/24 22:00 04/24/24 10:08 3.125 MG Clopidogrel Bisulfate 75 mg DAILY PO 04/24/24 10:00 04/24/24 10:08 75 MG Empaglifozin 10 mg DAILY PO 04/24/24 10:00 04/24/24 10:08 10 MG Levetiracetam 500 mg BID PO 04/23/24 22:00 04/24/24 08:50 500 MG Atorvastatin Calcium 10 mg HS PO 04/23/24 22:00 04/23/24 22:10 10 MG Patient Own Medication 1 tab BID PO 04/24/24 10:00 Oseltamivir Phosphate 30 mg BID PO 04/23/24 22:00 04/27/24 22:01 04/24/24 08:50 30 MG Enoxaparin Sodium 70 mg Q12HR SC 04/24/24 10:00 04/24/24 10:07 70 MG Furosemide 20 mg BIDD IV 04/24/24 18:00 Albuterol 2.5 mg Q4HR NEB 04/24/24 14:00 Ipratropium [place] 0.5 mg Q4HR NEB 04/24/24 14:00 Examination Physical examination: General Appearance: Alert, Oriented X3, Cooperative, No acute distress HEENT: Atraumatic, PERRLA, EOMI, Mucous membrane moist/pink Respiratory: Bilateral wheezing, crackles. Cardiovascular: Regular rate, Normal S1, Normal S2, No murmurs, no chest wall tenderness Abdominal: Normal bowel sounds, Soft, No tenderness, No hepatospenomegaly, No masses Extremities: Bilateral pedal edema +, No clubbing, No cyanosis, Normal pulses. Skin: No rashes, No breakdown, No significant lesion Neuro: Normal speech, Strength at 5/5 X4 ext, Normal tone, Sensation intact, grossly intact cranial nerves. Psych/Mental Status: Mental status NL, Mood NL laboratory and microbiology Laboratory Tests 04/24/24 05:14 Test 04/24/24 05:14 Range/Units Serum Glucose 177 H 74-106 mg/dL Microbiology Date/Time Source Procedure Growth Status 04/23/24 09:20 Blood Blood Culture - Preliminary NO GROWTH AFTER 24 HOURS OF INCUBATION. Resulted Labs and/or images reviewed: Labs reviewed by me, Image(s) reviewed by me Problem List/Assessment/Plan Problem List/Assessment/Plan Assessment and plan: # Acute hypoxic respiratory failure secondary to acute on chronic COPD # Influenza A infection # Possible NSTEMI type 2 secondary to above # Possible acute exacerbation of chronic systolic heart failure # Old left bundle branch block - CXR revealed no acute cardiopulmonary abnormality - BNP 1315.30 - Troponin trends are 2214>[id number]>4025 - Cardiology on board - Pending echo - IV Lasix 20 mg b.i.d. - IV methylprednisolone 40 mg b.i.d. - med neb with albuterol and ipratropium q.4 hours - Influenza A positive, COVID negative and MRSA pending - IV azithromycin for 500 mg daily - Tamiflu 30 mg b.i.d - Continue GDMT , Jardiance 10 mg p.o. daily, carvedilol 3.125 mg b.i.d., entresto 49-51 mg , 1 tab b.i.d and we will titrate up according to the response of the blood pressure - Continue Atorvastatin 10 mg at HS and Plavix 75 mg p.o. daily. - Pending blood and urine culture. # DEACON on CKD likely secondary to hemodynamically mediated/VMN - Monitor BMP # Type 2 diabetes mellitus, HbA1C 7.3% - Lantus 12 unit at q.p.m. and moderate sliding scale of insulin # History of seizure disorder - Continue Keppra 500 mg p.o. b.i.d. # Possible subclinical hyperthyroidism - TSH , T3 are low and T4 normal # PUD prophylaxis - Pepcid 20 mg PO b.i.d # DVT prophylaxis - Lovenox 40 mg sc daily Goal of care discussed with the patient for more than 20 minutes full code Plan discussed with Dr. Baird Plan discussed with: Patient, Other My Orders My Orders Orders - RAMOS BAUTISTA Procedure Category Date Status Time Furosemide Injection PHA 04/24/24 In Process (Lasix Injection) 18:00 Albuterol Medneb PHA 04/24/24 In Process (Ventolin Medneb) 14:00 Ipratropium Medneb PHA 2 In Process (Atrovent Medneb) 14:00 Insulin Lantus PHA 04/24/24 Verified (Glargine) (Lantus) 18:00 Date of Service: Apr 24, 2024 Billing Provider: CITLALI BUENROSTRO MD Common Visit Codes: [id number] INP/OBS CARE(HIGH) RAMOS BAUTISTA Apr 24, 2024 11:44 CITLALI BUENROSTRO MD Apr 30, 2024 09:41
--- NOTE | 2024-04-24 12:42 | MEDREC ---
[facility] Intervention Section I [facility] Intervention: Review courses of therapy (DUE TO PROLONG QTc > 500 PLEASE CONSIDER SWITCHING AZITHROMYCIN TO DOXYCYCLINE OR D/C ANTIBIOTIC IF APPROPRIATE) BERE IGLESIAS PHARMACIST Apr 24, 2024 12:42
--- NOTE | 2024-04-24 13:12 | DVHPN2 ---
Consult Progress Note Date Seen: Apr 24, 2024 Subjective Review of Systems: CVS:Normal, RESPIRATORY:Normal, NEURO:Normal Other Systems: Denies any cardiac symptoms Objective vital signs Vital Sign Date Time Temp Pulse Resp B/P (MAP) Pulse Ox O2 Delivery O2 Flow Rate FiO2 04/24/24 13:02 98.3 60 17 118/54 (75) 94 98.3 04/24/24 10:10 Nasal Cannula 4.0 04/24/24 10:05 36 Total Intake and Output 04/23/24 04/23/24 04/24/24 15:00 23:00 07:00 Intake Total 1039 ml 295 ml 100 ml Balance 1039 ml 295 ml 100 ml medications Current Medications Medications Dose Ordered Sig/Smiley Route Start Time Stop Time Status Last Admin Dose Admin Sodium Chloride 10 ml Q8HR IV 04/23/24 14:00 04/24/24 06:01 10 ML Ondansetron HCl 4 mg Q4HP PRN IV 04/23/24 14:00 Docusate Sodium 100 mg BIDPRN PRN PO 04/23/24 14:00 Acetaminophen 650 mg Q6HP PRN PO 04/23/24 14:00 Nitroglycerin 0.4 mg Q5MINP PRN SL 04/23/24 14:00 Morphine Sulfate 2 mg Q30M PRN IV 04/23/24 14:00 Azithromycin 250 ml @ 125 mls/hr DAILY IV 04/24/24 10:00 04/24/24 08:51 125 MLS/HR Methylprednisolone Sodium Succinate 40 mg BID IV 04/23/24 22:00 04/24/24 08:51 40 MG Diagnostic Test (Pha) 1 strip ACHS 04/23/24 17:00 04/24/24 11:14 1 STRIP Insulin Human Regular HS SC 04/23/24 22:00 Insulin Human Regular AC SC 04/23/24 17:00 04/24/24 11:15 9 UNITS Dextrose 50 ml UD PRN IV 04/23/24 14:00 Carvedilol 3.125 mg BID PO 04/23/24 22:00 04/24/24 10:08 3.125 MG Clopidogrel Bisulfate 75 mg DAILY PO 04/24/24 10:00 04/24/24 10:08 75 MG Empaglifozin 10 mg DAILY PO 04/24/24 10:00 04/24/24 10:08 10 MG Levetiracetam 500 mg BID PO 04/23/24 22:00 04/24/24 08:50 500 MG Atorvastatin Calcium 10 mg HS PO 04/23/24 22:00 04/23/24 22:10 10 MG Patient Own Medication 1 tab BID PO 04/24/24 10:00 Oseltamivir Phosphate 30 mg BID PO 04/23/24 22:00 04/27/24 22:01 04/24/24 08:50 30 MG Enoxaparin Sodium 70 mg Q12HR SC 04/24/24 10:00 04/24/24 10:07 70 MG Furosemide 20 mg BIDD IV 04/24/24 18:00 Albuterol 2.5 mg Q4HR NEB 04/24/24 14:00 Ipratropium [place] 0.5 mg Q4HR NEB 04/24/24 14:00 Insulin Glargine 12 units QPM SC 04/24/24 18:00 Examination: GENERAL:Normal, LUNGS:Normal, CVS:Normal, NEURO:Normal laboratory and microbiology Laboratory Tests 04/24/24 05:14 Test 04/24/24 05:14 Range/Units Serum Glucose 177 H 74-106 mg/dL Problem List/Assessment/Plan Problem List/Assessment/Plan Acute hypoxic respiratory failure with influenza A Likely NSTEMI Type II secondary to above Chronic compensated unspecified heart failure Left bundle branch block, not newly diagnosed Hypertension Dyslipidemia HX of CVA Likely DEACON on CKD Plan/Recommendation (Dr. Lyon) Likely NSTEMI Type II secondary to acute respiratory failure including Influenza Type A. Continue further cardiac evaluation with a transthoracic echocardiogram to evaluate cardiac function. Transition to DVT/VTE prophylaxis. Reestablish home medications including GDMT for CHF and single-antiplatelet therapy with plavix. Cardiac stable. There is no further cardiac work-up indicated at this time. Follow-up with primary Middle Card Tender as scheduled in [place]. Kindly call if in need to re-consult. Thank you for allowing us to participate in this patient's care. This medical document was created using an electronic medical record system with voice recognition software and computerized dictation system. Although this document has been carefully reviewed, there might still be some phonetic and typographical errors. Occasional wrong-word or ``sound-alike substitutions may have occurred due to the inherent limitations of voice recognition software. These areas are purely typographical due to imperfections of the software programs and do not reflect any compromise in the patient's medical care. Please read the chart carefully and recognize, using context, where these substitutions have occurred. Plan discussed with: Patient, Other Date of Service: Apr 24, 2024 Billing Provider: MARIN AKINS Cardiology Common Codes: [id number] INP/OBS CARE(Mod) MARIN AKINS Apr 24, 2024 13:12
[2024-04-24] MEDS: IPRATROPIUM BROM 0.5 MG/2.5ML INH SOL NEB SCH (13:23)
[2024-04-24] MEDS: ALBUTEROL SULF 2.5 MG/0.5ML(0.5%) NEB SOLN NEB SCH (13:23)
[2024-04-24] MEDS: INSULIN LANTUS (GLARGINE) 1 /0.01ml (100units/ml) SC SCH (17:21)
[2024-04-24] MEDS: FUROSEMIDE 20 MG/2 ML VIAL IV SCH (17:36)
[2024-04-24] MEDS ORDERED: Glucerna Carbsteady SHAKE Vanilla 8oz PO SCH (18:00)
[2024-04-24] MEDS: FAMOTIDINE 20 MG TAB PO SCH (22:00)
[2024-04-25] VITALS (21 sets, daily range): BP systolic 109–136; BP diastolic 61–65; PULSE 52–89; RESP 14–20; TEMP 97.5–98.9; O2SAT 94–100
[2024-04-25 05:41] LABS: Basophils # (auto) 0 10 ^3/uL (0-0.2); Basophils % (auto) 0.1 % (0.0-2.0); Eosinophils # (auto) 0 10 ^3/uL (0-0.8); Hematocrit 36.3 % (36.0-46.0); Lymphocytes # (auto) 0.9 10 ^3/uL (0.4-5.4); Lymphocytes % (auto) 10.9 % (10.0-50.0); Mean Corpuscular Hemoglobin 29.2 pg (28.0-32.0); Mean Corpuscular Hgb Conc. 33.1 g/dL (32.0-36.0); Mean Corpuscular Volume 88.3 fL (80.0-100.0); Monocytes # (auto) 0.3 10 ^3/uL (0-1.3); Monocytes % (auto) 3.5 % (0.0-12.0); Neutrophils # (auto) 6.9 10 ^3/uL (1.6-8.6); Neutrophils % (auto) 85.5 % (37.0-80.0); Platelet Count (auto) 226 10^3/uL (140-450); Red Blood Cells 4.11 10^6/uL (4.0-5.20); Red Cell Distribution Width 13.9 % (11.8-14.3); White Blood Cell 8.1 10^3/uL (4.4-10.8)
[2024-04-25 06:11] LABS: Anion Gap 11 (5-15); Carbon Dioxide 24 mmol/L (20-31); Sodium 143 mmol/L (136-145)
[2024-04-25 06:14] LABS: Calcium 8.6 mg/dL (8.7-10.4); Chloride 108 mmol/L (98-107); Potassium 3.3 mmol/L (3.5-5.1)
[2024-04-25 06:17] LABS: BUN/Creatinine Ratio 30.9 (10.0-20.0)
[2024-04-25 06:20] LABS: Blood Urea Nitrogen 43 mg/dL (9-23); Glucose 187 mg/dL (74-106)
[2024-04-25] MEDS: POTASSIUM CHL 20 Meq TABLET PO ONE (08:43)
[2024-04-25] MEDS: ENOXAPARIN SOD 40 MG/0.4 ML SYRINGE SC SCH (09:54)
[2024-04-25] MEDS: methylPREDNISolone SOD SUCC 40 MG/ML VL IV SCH (11:20)
--- NOTE | 2024-04-25 12:19 | DVHPNRES ---
Progress Note Date Seen: Apr 25, 2024 Resident Creating Document: RAMOS BAUTISTA RESIDENT Medical Necessity Reason Pt with a Central, PICC or Fol: No Subjective Review of Systems This is a 73 years old old female with past medical history of hypertension, dyslipidemia, CHF, type 2 diabetes mellitus, osteoporosis presented to the ED with a chief complaint of flu-like symptoms for 2 days prior to this admission. The patient complains of flu-like symptoms including a sore throat, nausea, vomiting, diarrhea, pyrexia, and a productive cough with green sputum. She was found with an oxygen saturation level of 84% on room air for which she was administered supplemental oxygenation via NC. The patient does complaint of substernal chest pain which is sharp in nature and worse with coughing. The patient reports family sick contacts at home. She underwent a 12 lead electrocardiogram revealing a sinus rhythm with an associated left bundle branch block. Patient was seen and examined on the bedside. she is alert oriented x3 and on 2 L oxygen through nasal canula. Complaint of cough with productive sputum . No other active complaint. Objective vital signs Vital Sign Date Time Temp Pulse Resp B/P (MAP) Pulse Ox O2 Delivery O2 Flow Rate FiO2 04/25/24 11:02 65 18 04/25/24 10:55 97 04/25/24 09:54 121/56 04/25/24 08:30 98.0 98.0 04/25/24 07:34 Nasal Cannula* 3 32 Total Intake and Output 04/24/24 04/24/24 04/25/24 15:00 23:00 07:00 Intake Total 250 ml 750 ml 500 ml Balance 250 ml 750 ml 500 ml medications Current Medications Medications Dose Ordered Sig/Smiley Route Start Time Stop Time Status Last Admin Dose Admin Sodium Chloride 10 ml Q8HR IV 04/23/24 14:00 04/25/24 05:09 10 ML Ondansetron HCl 4 mg Q4HP PRN IV 04/23/24 14:00 Docusate Sodium 100 mg BIDPRN PRN PO 04/23/24 14:00 Acetaminophen 650 mg Q6HP PRN PO 04/23/24 14:00 Nitroglycerin 0.4 mg Q5MINP PRN SL 04/23/24 14:00 Morphine Sulfate 2 mg Q30M PRN IV 04/23/24 14:00 Azithromycin 250 ml @ 125 mls/hr DAILY IV 04/24/24 10:00 04/25/24 09:53 125 MLS/HR Diagnostic Test (Pha) 1 strip ACHS 04/23/24 17:00 04/25/24 12:05 1 STRIP Insulin Human Regular HS SC 04/23/24 22:00 04/24/24 22:00 10 UNITS Insulin Human Regular AC SC 04/23/24 17:00 04/25/24 12:04 9 UNITS Dextrose 50 ml UD PRN IV 04/23/24 14:00 Carvedilol 3.125 mg BID PO 04/23/24 22:00 04/25/24 09:54 3.125 MG Clopidogrel Bisulfate 75 mg DAILY PO 04/24/24 10:00 04/25/24 09:53 75 MG Empaglifozin 10 mg DAILY PO 04/24/24 10:00 04/25/24 09:53 10 MG Levetiracetam 500 mg BID PO 04/23/24 22:00 04/25/24 09:54 500 MG Atorvastatin Calcium 10 mg HS PO 04/23/24 22:00 04/24/24 22:00 10 MG Patient Own Medication 1 tab BID PO 04/24/24 10:00 Oseltamivir Phosphate 30 mg BID PO 04/23/24 22:00 04/27/24 22:01 04/25/24 09:53 30 MG Furosemide 20 mg BIDD IV 04/24/24 18:00 04/25/24 05:08 20 MG Albuterol 2.5 mg Q4HR NEB 04/24/24 14:00 04/25/24 10:53 2.5 MG Ipratropium Zalma 0.5 mg Q4HR NEB 04/24/24 14:00 04/25/24 10:53 0.5 MG Insulin Glargine 12 units QPM SC 04/24/24 18:00 04/24/24 17:21 12 UNITS Enoxaparin Sodium 40 mg DAILY SC 04/25/24 10:00 04/25/24 09:54 40 MG Famotidine 20 mg DAILY PO 04/24/24 22:00 04/25/24 09:53 20 MG Methylprednisolone Sodium Succinate 40 mg DAILY IV 04/25/24 09:30 04/25/24 11:20 40 MG Examination Physical examination: General Appearance: Alert, Oriented X3, Cooperative, No acute distress HEENT: Atraumatic, PERRLA, EOMI, Mucous membrane moist/pink Respiratory: Bilateral scattered wheezes, crackles. Cardiovascular: Regular rate, Normal S1, Normal S2, No murmurs, no chest wall tenderness Abdominal: Normal bowel sounds, Soft, No tenderness, No hepatospenomegaly, No masses Extremities: No edema, No clubbing, No cyanosis, Normal pulses. Skin: No rashes, No breakdown, No significant lesion Neuro: Normal speech, Strength at 5/5 X4 ext, Normal tone, Sensation intact, grossly intact cranial nerves. Psych/Mental Status: Mental status NL, Mood NL laboratory and microbiology Laboratory Tests 04/25/24 05:17 Test 04/25/24 05:17 Range/Units Serum Glucose 187 H 74-106 mg/dL Microbiology Date/Time Source Procedure Growth Status 04/23/24 09:45 Voided Urine Urine Culture - Final Complete 04/23/24 09:20 Blood Blood Culture - Preliminary NO GROWTH AFTER 48 HOURS OF INCUBATION. Resulted Labs and/or images reviewed: Labs reviewed by me, Image(s) reviewed by me Problem List/Assessment/Plan Problem List/Assessment/Plan Assessment and plan: # Acute hypoxic respiratory failure secondary to acute on chronic COPD # Influenza A infection # Possible NSTEMI type 2 secondary to above # Possible acute exacerbation of chronic systolic heart failure # Old left bundle branch block - CXR revealed no acute cardiopulmonary abnormality - BNP 1315.30 - Troponin trends are [id number] - Cardiology on board - Echo revealed EF 25 to 30%. - IV Lasix 20 mg b.i.d. - IV methylprednisolone 40 mg daily. - med neb with albuterol and ipratropium q.4 hours - Influenza A positive, COVID negative and MRSA pending - IV azithromycin for 500 mg daily - Tamiflu 30 mg b.i.d - Continue GDMT , Jardiance 10 mg p.o. daily, carvedilol 3.125 mg b.i.d., entresto 49-51 mg , 1 tab b.i.d and we will titrate up according to the response of the blood pressure - Continue Atorvastatin 10 mg at HS and Plavix 75 mg p.o. daily. - Pending blood and urine culture. # DEACON on CKD likely secondary to hemodynamically mediated/VMN - Monitor BMP # Type 2 diabetes mellitus, HbA1C 7.3% - Lantus 12 unit at q.p.m. and moderate sliding scale of insulin # History of seizure disorder - Continue Keppra 500 mg p.o. b.i.d. # Possible subclinical hyperthyroidism - TSH , T3 are low and T4 normal # PUD prophylaxis - Pepcid 20 mg PO b.i.d # DVT prophylaxis - Lovenox 40 mg sc daily Goal of care discussed with the patient for more than 20 minutes full code Plan discussed with Dr. Baird Plan discussed with: Patient, Other My Orders My Orders Orders - RAMOS BAUTISTA Procedure Category Date Status Time Famotidine Tablet PHA 04/24/24 In Process (Pepcid Tablet) 22:00 Methylprednisolone PHA 04/25/24 In Process Sod Succ (Solu Medrol 09:30 Date of Service: Apr 25, 2024 Billing Provider: CITLALI BUENROSTRO MD Common Visit Codes: [id number] INP/OBS CARE(HIGH) RAMOS BAUTISTA Apr 25, 2024 12:19 CITLALI BUENROSTRO MD Apr 30, 2024 09:47
--- NOTE | 2024-04-25 16:23 | DVHSR ---
APPROVED REPORT EXAM: LIMITED Two-dimensional and M-mode echocardiogram with Doppler and color Doppler. Blood Pressure: 124/53 mmHg INDICATION NSTEMI RISK FACTORS Height: 5' 2", Weight: 173 DIMENSIONS LVDd5.0 (3.8-5.7cm)LA (2D)3.7 (1.9-4.0cm)Aortic Root2.6 (2.0-3.7cm) LVDs4.3 (2.5-4.0cm)LA (MM) (1.9-4.0cm)Aortic Cusp Exc1.6 (1.5-2.0cm) EF (%) 35.0 (55-70%)Rt. Atrium4.0 (1.9-4.0cm)Asc. Aorta cm IVSd1.1 (0.7-1.1cm)RV (D) (1.8-2.4cm) PWd1.1 (0.7-1.1cm) Mitral Valve MitralMitral Stenosis E wave1.00m/sMV Mean GR.mmHg A wave1.20m/sMV Peak GR.mmHg E/A ratio0.82D MVAcm2 Aortic Valve Aortic ValveAortic Stenosis V10.60m/Kalani Mean GR.4mmHg V21.50m/Kalani Peak GR.9mmHg LVOT Diameter2.1 (1.8-2.4cm)Doppler AVA1.38cm2 Pulmonic Valve V20.80m/s Tricuspid Valve TR Velocity2.60m/s [id number] Conclusion Sinus rhythm. Biatrial enlargement. Mild aortic root dilatation. Concentric LVH. Valves. We structurally normal. Mild mitral annular calcification. Mild dilation of the sinuses of Valsalva. Left ventricular systolic performance is diminished. EF is about 25-30%. Global hypokinesis especia lly of the anterior wall. Mild pulmonic insufficiency. Trace MR. Mild tricuspid regurgitation. No pericardial effusion masses or vegetations.
[2024-04-26] VITALS (13 sets, daily range): BP systolic 127–141; BP diastolic 60–76; PULSE 54–82; RESP 16–22; TEMP 97.7–98; O2SAT 91–100
[2024-04-26 06:26] LABS: Basophils # (auto) 0 10 ^3/uL (0-0.2); Basophils % (auto) 0.1 % (0.0-2.0); Eosinophils # (auto) 0 10 ^3/uL (0-0.8); Hemoglobin 12.4 g/dL (12.2-16.2); Lymphocytes # (auto) 1.1 10 ^3/uL (0.4-5.4); Mean Corpuscular Hemoglobin 29.4 pg (28.0-32.0); Mean Corpuscular Hgb Conc. 33.6 g/dL (32.0-36.0); Mean Corpuscular Volume 87.5 fL (80.0-100.0); Monocytes # (auto) 0.5 10 ^3/uL (0-1.3); Monocytes % (auto) 5.1 % (0.0-12.0); Neutrophils # (auto) 7.4 10 ^3/uL (1.6-8.6); Neutrophils % (auto) 82.8 % (37.0-80.0); Platelet Count (auto) 239 10^3/uL (140-450); Red Blood Cells 4.23 10^6/uL (4.0-5.20); Red Cell Distribution Width 13.6 % (11.8-14.3)
[2024-04-26 06:36] LABS: Sodium 143 mmol/L (136-145)
[2024-04-26 06:37] LABS: Anion Gap 10 (5-15); Carbon Dioxide 26 mmol/L (20-31)
[2024-04-26 06:42] LABS: BUN/Creatinine Ratio 37.5 (10.0-20.0); Blood Urea Nitrogen 42 mg/dL (9-23); Calcium 8.5 mg/dL (8.7-10.4); Chloride 107 mmol/L (98-107); Glucose 117 mg/dL (74-106); Potassium 3.3 mmol/L (3.5-5.1)
[2024-04-26] MEDS: POTASSIUM CHL 20 Meq TABLET PO ONE (10:14)
[2024-04-26] MEDS: DOXYCYCLINE 100 MG TAB/CAP PO SCH (11:36)
[2024-04-26] MEDS ORDERED: INSU1INJ19 SC (12:25)
[2024-04-26] MEDS ORDERED: TAMIFLU PO (12:25)
[2024-04-26] MEDS ORDERED: PRED20TA2 PO (12:25)
[2024-04-26] MEDS ORDERED: FURO1TAB33 PO (12:25)
[2024-04-26] MEDS ORDERED: POTA-36 PO (12:25)
[2024-04-26] MEDS ORDERED: LEVO750T40 PO (12:25)
[2024-04-26] MEDS ORDERED: ATOR40TA52 PO (12:27)
--- NOTE | 2024-04-26 14:41 | DVHDSRES ---
Discharge Summary Date of Admission Resident Creating Document: RAMOS BAUTISTA RESIDENT Apr 23, 2024 at 13:47 Date of Discharge: Apr 26, 2024 Admitting Diagnosis # Acute hypoxic respiratory failure secondary to acute on chronic COPD # Influenza A infection Wounds: No wound was present. Labs/Diagnostic Data: Laboratory Results Test 04/26/24 11:26 04/26/24 05:47 04/24/24 05:14 04/23/24 19:08 POC Glucose 314 mg/dl (70-106) White Blood Count 9.0 10^3/uL (4.4-10.8) Red Blood Count 4.23 10^6/uL (4.0-5.20) Hemoglobin 12.4 g/dL (12.2-16.2) Hematocrit 37.0 % (36.0-46.0) Mean Corpuscular Volume 87.5 fL (80.0-100.0) Mean Corpuscular Hemoglobin 29.4 pg (28.0-32.0) Mean Corpuscular Hemoglobin Concent 33.6 g/dL (32.0-36.0) Red Cell Distribution Width 13.6 % (11.8-14.3) Platelet Count 239 10^3/uL (140-450) Mean Platelet Volume 7.8 fL (6.9-10.8) Neutrophils (%) (Auto) 82.8 % (37.0-80.0) Lymphocytes (%) (Auto) 12.0 % (10.0-50.0) Monocytes (%) (Auto) 5.1 % (0.0-12.0) Eosinophils (%) (Auto) 0.0 % (0.0-7.0) Basophils (%) (Auto) 0.1 % (0.0-2.0) Neutrophils # (Auto) 7.4 10 ^3/uL (1.6-8.6) Lymphocytes # (Auto) 1.1 10 ^3/uL (0.4-5.4) Monocytes # (Auto) 0.5 10 ^3/uL (0-1.3) Eosinophils # (Auto) 0 10 ^3/uL (0-0.8) Basophils # (Auto) 0 10 ^3/uL (0-0.2) Nucleated Red Blood Cells 0.0 % Sodium Level 143 mmol/L (136-145) Potassium Level 3.3 mmol/L (3.5-5.1) Chloride Level 107 mmol/L (98-107) Carbon Dioxide Level 26 mmol/L (20-31) Anion Gap 10 (5-15) Blood Urea Nitrogen 42 mg/dL (9-23) Creatinine 1.12 mg/dL (0.550-1.02) Glomerular Filtration Rate Calc 52 mL/min (>90) BUN/Creatinine Ratio 37.5 (10.0-20.0) Serum Glucose 117 mg/dL (74-106) Calcium Level 8.5 mg/dL (8.7-10.4) Magnesium Level 2.1 mg/dL (1.6-2.6) Total Bilirubin 0.3 mg/dL (0.2-1.0) Aspartate Amino Transferase (AST) 71 U/L (13-40) Alanine Aminotransferase (ALT) 26 U/L (7-40) Alkaline Phosphatase 53 U/L (46-116) Troponin I High Sensitivity 4025 ng/L (</=34) B-Type Natriuretic Peptide 1315.30 pg/mL (0-100) Total Protein 6.6 g/dL (5.7-8.2) Albumin 3.6 g/dL (3.2-4.8) Free Thyroxine (T4) Calculated 1.26 ng/dL (0.89-1.76) Free Triiodothyronine (T3) pg/mL 1.87 pg/mL (2.3-4.2) Triglycerides Level 74 mg/dL (< 150) Cholesterol Level 92 mg/dL (< 200) LDL Cholesterol 25 mg/dL (< 100) HDL Cholesterol 48 mg/dL (40-59) Thyroid Stimulating Hormone (TSH) 0.29 uIU/mL (0.55-4.78) Test 04/23/24 18:29 04/23/24 12:00 04/23/24 09:45 04/23/24 09:20 Prothrombin Time 12.1 sec (9.3-11.8) Prothrombin Time INR 1.16 (0.9-1.15) Activated Partial Thromboplast Time 84.0 SEC (24.5-34.5) Hemoglobin A1c 7.3 % A1C (<5.7) Urine Color Colorless (Yellow) Urine Clarity Turbid (Clear) Urine pH 5.5 (5.0-9.0) Urine Specific [place] 1.026 (1.001-1.035) Urine Protein 1+ (Negative) Urine Ketones Negative (Negative) Urine Blood 2+ /uL (Negative) Urine Nitrite Negative (Negative) Urine Bilirubin Negative (Negative) Urine Urobilinogen Normal mg/dL (Negative) Urine Leukocyte Esterase Trace /uL (Negative) Urine RBC 5 /hpf (0 - 4) Urine Microscopic WBC 22 /HPF (0-5) Urine Squamous Epithelial Cells Few /hpf (<5) Urine Bacteria None seen /hpf (None Seen) Urine Yeast (Budding) Occasional /hpf (None Urine Glucose 4+ mg/dL (Normal) Lactic Acid Level 1.0 mmol/L (0.4-2.0) Test 04/23/24 09:15 Influenza Type A Antigen Positive (Negative) Influenza Type B Antigen Negative (Negative) SARS-CoV-2 Antigen (Rapid) Negative (NEGATIVE) Other Laboratory Tests 04/26/24 05:47 Brief Hx & Hospital Course: This is a 73 years old old female with past medical history of hypertension, dyslipidemia, CHF, type 2 diabetes mellitus, osteoporosis presented to the ED with a chief complaint of flu-like symptoms for 2 days prior to this admission. The patient complains of flu-like symptoms including a sore throat, nausea, vomiting, diarrhea, pyrexia, and a productive cough with green sputum. She was found with an oxygen saturation level of 84% on room air for which she was administered supplemental oxygenation via NC. The patient does complaint of substernal chest pain which is sharp in nature and worse with coughing. The patient reports family sick contacts at home. She underwent a 12 lead electrocardiogram revealing a sinus rhythm with an associated left bundle branch block. Hospital course: Initially patient was presented with acute hypoxic respiratory failure secondary to acute on chronic COPD, influenza A positive, and NSTEMI type 2 secondary to infection. EKG revealed old left bundle-branch block and any meds chest x-ray revealed no acute cardiopulmonary abnormality, BNP 1 315 and echo revealed ejection fraction 25-30%. patient was treated with IV Lasix 20 mg b.i.d., IV methylprednisolone 40 mg daily, med neb with albuterol and ipratropium q.4 hours, IV azithromycin 500 mg daily for 1 day and because of the QT prolongation change the IV azithromycin to oral doxycycline 100 mg p.o. b.i.d., Tamiflu 30 mg b.i.d. and continued GDM T with Jardiance 10 mg p.o. daily, carvedilol 3.125 mg b.i.d., Entresto 56689 mg 1 tab b.i.d., atorvastatin 10 mg at HS and Plavix 75 mg p.o. daily. History of CKD and patient developed DEACON on CKD likely secondary to hemodynamically mediated which also improved to baseline and blood sugar was controlled with Lantus 12 units q.p.m. and moderate sliding scale of insulin also continued Keppra 500 mg p.o. b.i.d. Discharge plan was discussed with the patient and all questions were answered. Patient is being discharged to home. Discharge diagnosis: # Acute hypoxic respiratory failure secondary to acute on chronic COPD # Influenza A infection # Possible NSTEMI type 2 secondary to above # Possible acute exacerbation of chronic systolic heart failure # Old left bundle branch block # DEACON on CKD likely secondary to hemodynamically mediated/VMN # Type 2 diabetes mellitus, HbA1C 7.3% # History of seizure disorder # Possible subclinical hyperthyroidism Discharge Plan: Disposition: Home Medications: Levofloxacin 750 mg p.o. daily for 3 days, Tamiflu 30 mg p.o. b.i.d. for 2 days, Lasix 20 mg daily p.o. for 30 days, atorvastatin 20 mg at HS for 30 days, prednisone 40 mg daily for 3 days, potassium chloride 10 mEq tablet daily 14 days and continue home medications. Follow up: PCP in 1 week Outpatient Cardiology in 1 to 2 week. Consults/Reason for consult Cardiology was consulted Operations or Procedures EXAM: XY CHEST PORTABLE Indication: sob Technique: Single frontal view of the chest was obtained Comparison: None FINDINGS: Lines and Tubes: None Lungs: No focal consolidation. Pleura: No effusion. No pneumothorax. Cardiomediastinal contours: Unremarkable Bones: No acute osseous abnormality. IMPRESSION: No acute cardiopulmonary disease. EXAM: LIMITED Two-dimensional and M-mode echocardiogram with Doppler and color Doppler. Blood Pressure: 124/53 mmHg INDICATION NSTEMI RISK FACTORS Height: 5' 2", Weight: 173 DIMENSIONS LVDd 5.0 (3.8-5.7cm) LA (2D) 3.7 (1.9-4.0cm) Aortic Root 2.6 (2.0- 3.7cm) LVDs 4.3 (2.5-4.0cm) LA (MM) (1.9-4.0cm) Aortic Cusp Exc 1.6 (1.5- 2.0cm) EF (%) 35.0 (55-70%) Rt. Atrium 4.0 (1.9-4.0cm) Asc. Aorta cm IVSd 1.1 (0.7-1.1cm) RV (D) (1.8-2.4cm) PWd 1.1 (0.7-1.1cm) Mitral Valve Mitral Mitral Stenosis E wave 1.00m/s MV Mean GR. mmHg A wave 1.20m/s MV Peak GR. mmHg E/A ratio 0.8 2D MVA cm2 Aortic Valve Aortic Valve Aortic Stenosis V1 0.60m/s AO Mean GR. 4mmHg V2 1.50m/s AO Peak GR. 9mmHg LVOT Diameter 2.1 (1.8-2.4cm) Doppler NASRE[place] 1.38cm2 Pulmonic Valve V2 0.80m/s Tricuspid Valve TR Velocity 2.60m/s RVSP 35mmHg Conclusion Sinus rhythm. Biatrial enlargement. Mild aortic root dilatation. Concentric LVH. Valves. We structurally normal. Mild mitral annular calcification. Mild dilation of the sinuses of Valsalva. Left ventricular systolic performance is diminished. EF is about 25-30%. Global hypokinesis especially of the anterior wall. Mild pulmonic insufficiency. Trace MR. Mild tricuspid regurgitation. No pericardial effusion masses or vegetations. Condition at Discharge: Guarded Final Diagnosis/Problems List # Acute hypoxic respiratory failure secondary to acute on chronic COPD # Influenza A infection # Possible NSTEMI type 2 secondary to above # Possible acute exacerbation of chronic systolic heart failure # Old left bundle branch block # DEACON on CKD likely secondary to hemodynamically mediated/VMN # Type 2 diabetes mellitus, HbA1C 7.3% # History of seizure disorder # Possible subclinical hyperthyroidism Discharge Disposition: Home Discharge Instruct/Medications Diet: Consistent carbohydrate, Cardiac 2g Na,low cholest Activity: No Restrictions, As Tolerated Follow Up/Referral: Follow up with DC clinic in 1 week Follow up with cardiology in 1 to 2 weeks. Medications: As per EMR Discharge Statement: "Patient was advised to return to the ER or call 911 if any headaches, dizziness, shortness of breath, chest pain, abdominal pain, bleeding, fevers, or worsening of medical condition. Patient was counseled about treatment plan, medications, possible side effects, patientverbalized understanding. All questions were answered to the best of my ability. This discharge took greater then 30 minutes in planning, reviewing documentation, counseling the patient, and discussing with other team members." ASSESSMENT ASSESSMENT Assessment # Acute hypoxic respiratory failure secondary to acute on chronic COPD # Influenza A infection # Possible NSTEMI type 2 secondary to above # Possible acute exacerbation of chronic systolic heart failure # Old left bundle branch block # DEACON on CKD likely secondary to hemodynamically mediated/VMN # Type 2 diabetes mellitus, HbA1C 7.3% # History of seizure disorder # Possible subclinical hyperthyroidism Date of Service: Apr 26, 2024 Billing Provider: CITLALI BUENROSTRO MD Common Visit Codes: [id number] DISCH DAY >30min RAMOS BAUTISTA RESIDENT Apr 26, 2024 14:40 CITLALI BUENROSTRO MD Apr 30, 2024 10:06
== END 2024-04-26 15:37 | disposition home or self-care (01) | DRG 133 ==
LOC: ER 08:46 → TELE 13:47 → TELE-EAST 23:53
PROVIDERS: ADMIT Student in an Organized Health Care Education/Training Program; ATTEND Emergency Medicine
DX: J96.01 Acute respiratory failure with hypoxia (principal); N17.0 Acute kidney failure with tubular necrosis; I21.A1 Myocardial infarction type 2; I50.23 Acute on chronic systolic (congestive) heart failure; J10.1 Influenza due to other identified influenza virus with other respiratory manifestations; E78.5 Hyperlipidemia, unspecified; E87.6 Hypokalemia; N18.9 Chronic kidney disease, unspecified; I44.7 Left bundle-branch block, unspecified; I13.0 Hypertensive heart and chronic kidney disease with heart failure and stage 1 through stage 4 chronic kidney disease, or unspecified chronic kidney disease; E11.22 Type 2 diabetes mellitus with diabetic chronic kidney disease; Z20.822 Contact with and (suspected) exposure to COVID-19; G40.909 Epilepsy, unspecified, not intractable, without status epilepticus; E05.80 Other thyrotoxicosis without thyrotoxic crisis or storm; M81.0 Age-related osteoporosis without current pathological fracture; Z79.899 Other long term (current) drug therapy; Z86.73 Personal history of transient ischemic attack (TIA), and cerebral infarction without residual deficits
CPT/HCPCS: 36415; 71045; 80048; 80053; 80061; 81001; 82962; 83036; 83605; 83735; 83880; 84439; 84443; 84481; 84484; 85025; 85610; 85730; 87040; 87086; 87426; 87804; 93005; 93306; 94640; 96365; 96375; G0378; G9035; J1815; J2405; J3490